=== PATIENT | female | born 1935 | race Caucasian/White ===

== ENCOUNTER → 2020-12-10 | Day surgery (SDC) | payer MEDICARE ==
[~2020-12-10] MED LIST: Acetaminophen 500 MG TAB ONE; BAMLANIVIMAB 700 MG in Sodium Chloride 0.9% 250 ML 250 ML IVPB SCH; diphenhydrAMINE 50 MG/ML VIAL ONE
== END ==
LOC: CSHSDC/OP 10:32
PROVIDERS: ATTEND Family Medicine
DX: Z23 Encounter for immunization (principal); U07.1 COVID-19
CPT/HCPCS: J1200